=== PATIENT | male | born 1980 | race Caucasian/White ===

== ENCOUNTER 2021-05-21 23:06 | Emergency (ER) | payer OTHER ==
[2021-05-21 23:17] VITALS: BP 129/78; PULSE 88; TEMP 98.7; BMI 27.4
[2021-05-22] MEDS ORDERED: LIDOCAINE 1%/EPI 1:100000 (20 ML MULTI DOSE VIAL) INF ONE (00:22)
[2021-05-22] MEDS ORDERED: DIPHTH,PERTUSS(ACELL),TET 0.5 ML DISP.SYRIN IM ONE ×2 (00:22→00:32)
[2021-05-22] MEDS ORDERED: LIDOCAINE 1%/EPI 1:100000 (20 ML MULTI DOSE VIAL) ONE (00:24)
== END 2021-05-22 01:08 | disposition home or self-care (01) ==
LOC: JER 23:06
PROC: 3E0234Z Introduction of Serum, Toxoid and Vaccine into Muscle, Percutaneous Approach (ICD-10-PCS; principal; 2021-05-21)
DX: S91.011A Laceration without foreign body, right ankle, initial encounter (principal); Y99.9 Unspecified external cause status
CPT/HCPCS: 90471; 90715; 99284-25